=== PATIENT | female | born 1960 | race Two or more races ===

== ENCOUNTER 2018-01-14 13:50 | Emergency (ER) | payer BC, MEDICAID ==
[~2018-01-14] VITALS: Ht 162.6 cm; Wt 71.7 kg
[2018-01-14] MEDS ORDERED: HYDROcodone-ACET 10/325MG TAB PO ONE (18:30)
[2018-01-14 18:45] VITALS: BP 132/79
== END 2018-01-14 18:51 | disposition home or self-care (01) ==
LOC: ER 13:50
DX: M85.60 Other cyst of bone, unspecified site (principal); E11.9 Type 2 diabetes mellitus without complications; E07.89 Other specified disorders of thyroid; Z88.2 Allergy status to sulfonamides
CPT/HCPCS: 73030; 73060; 73200